=== PATIENT | male | born 1935 | race Caucasian/White ===

== ENCOUNTER 2018-04-17 14:20 | Emergency (ER) | payer MEDICARE ==
[2018-04-17 14:34] LABS: #Basophils 0.1 thou/uL (0.0-0.2); #Eosinphils 0.5 thou/uL (0.0-0.7); #Lymphocytes 3.4 thou/uL (1.20-3.40); #Neutrophils 4.9 thou/uL (1.40-6.50); %Basophils 1.4 % (0.0-1.0); %Eosinophils 4.8 % (0.0-10.0); %Lymphocytes 34.7 % (21.0-51.0); %Monocytes 10.2 % (0.0-10.0); %Neutrophils 48.9 % (42.0-75.0); Hemoglobin 14.9 g/dL (14.0-18.0); Mean Corpuscular HGB CONC 35.2 g/dL (32.0-36.0); Mean Corpuscular Hemoglobin 30.6 pg (27.0-31.0); Mean Corpuscular Volume 86.7 fL (78.0-98.0); Mean Platelet Volume 8.2 fL (7.4-10.4); Platelet Count 167 thou/uL (130-400); RBC Distribution Width 11.3 % (11.5-14.5); Red Blood Cell (RBC) Count 4.89 mill/uL (4.70-6.10); White Blood Cell (WBC) Count 9.9 thou/uL (4.8-10.8)
[2018-04-17 14:49] LABS: ALT (SGPT) 16 U/L (8-55); AST (SGOT) 16 U/L (5-34); Albumin 3.9 g/dL (3.4-4.8); Alkaline Phosphatase 58 U/L (40-150); Anion Gap 14 mmol/L (10-20); BUN (Urea Nitrogen) 20 mg/dL (8.4-25.7); Bilirubin, Total 0.6 mg/dL (0.2-1.2); CK (CPK) 66 U/L (30-200); Calc. Creatinine Clearance 0 mL/min (70-130); Calcium 9.5 mg/dL (7.8-10.44); Carbon Dioxide 24 mmol/L (23-31); Chloride 102 mmol/L (98-107); Estimated GFR-MDRD 73; Glucose 99 mg/dL (83-110); Potassium 4.3 mmol/L (3.5-5.1); Protein, Total 6.9 g/dL (5.8-8.1); Sodium 136 mmol/L (136-145)
[2018-04-17 14:50] LABS: CKMB 2.6 ng/mL (0-6.6); Troponin I Less than 0.010 ng/mL (< 0.028)
--- NOTE | 2018-04-17 16:27 | CT ---
CT ANGIO CHEST WITH CONTRAST: INDICATIONS: Dyspnea. Shortness of breath. TECHNIQUE: Multiple axial tomograms obtained through the chest following pulmonary angio protocol with multiplan ar reconstruction and 3D post processing. FINDINGS: The pulmonary arteries show adequate opacification. No evidence of pulmonary embolus identified. Review of the lung davis reveals areas of patchy alveolar infiltrate involving the right upper lobe, the right middle lobe, and the right lower lobe. The left lung appears clear of infiltrate with dwaine e chronic appearing changes. The mediastinum is unremarkable. The left lobe of the thyroid is enlarged and heterogeneous. This should be further evaluated with a thyroid ultrasound. Images through the upper abdomen are unremarkable. IMPRESSION: 1. No evidence of pulmonary embolus. 2. Patchy nodular infiltrative changes throughout all lobes of the right lung. Findings suggest an infectious process. Close followup recommended. 3. Enlarged heterogeneous left lobe of thyroid. Recommend additional workup with thyroid ultrasound . POS: [facility]
== END 2018-04-17 17:35 | disposition home or self-care (01) ==
LOC: SCSER 14:20
DX: J18.9 Pneumonia, unspecified organism (principal); I10 Essential (primary) hypertension; Z87.891 Personal history of nicotine dependence
CPT/HCPCS: 71275; 80053; 82553; 83880; 84484; 85025; 93005; 96365; 96366; J1956

== ENCOUNTER 2019-08-30 15:00 | Outpatient (CLI) | payer MEDICARE ==
--- NOTE | 2019-08-30 16:43 | MRI ---
MRI OF PELVIS (PROSTATE) WITH AND WITHOUT IV CONTRAST: 08/30/19 HISTORY: 84-year-old male with elevated PSA, biopsy one year ago. TECHNIQUE: Multiplanar and multisequence MRI of the pelvis was performed with and without IV contrast using the prostate protocol. Evaluation was also performed on an independent 3D workstation. FINDINGS: The prostate measures 5 x 3.5 x 4.5 cm with a volume of 41 mL. There is a 1 cm focal area of restricted diffusion in the anterior aspect of the right mid gland with in the peripheral zone. This lesion in the peripheral zone demonstrates focally increased enhancement on the arterial images. No lentiform area of abnormally decreased T2 signal is noted in the transitional zone. The prostate capsule appears intact. The seminal vesicles also appear intact. No pelvic lymphadenopathy is seen. Pelvic sidewall is normal. 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 No abnormal areas of signal replacement are seen on the T1 weighted sequences or the pelvis to sugges t osseous metastatic disease. IMPRESSION: PI-RADS 4: high (clinically significant cancer is likely.) POS: [facility]
== END 2019-08-30 15:01 | disposition home or self-care (01) ==
LOC: TBSIIMAG 15:00
PROVIDERS: ATTEND Urology
DX: R97.20 Elevated prostate specific antigen [PSA] (principal)
CPT/HCPCS: 72197

== ENCOUNTER 2019-11-15 09:29 | Outpatient (CLI) | payer MEDICARE ==
--- NOTE | 2019-11-15 13:36 | NM ---
WHOLE BODY BONE SCAN: HISTORY: Prostate cancer RADIOPHARMACEUTICAL: 32.1 mCi technetium-99m MDP injected intravenously. COMPARISON: None FINDINGS: There is increased uptake in the shoulders consistent with degenerative changes. No other abnormal areas of tracer localization seen in the skeleton to suggest metastatic disease. Tracer excretion through the kidneys is within normal limits. IMPRESSION: No scintigraphic evidence of osseous metastatic disease.
== END 2019-11-15 09:30 | disposition home or self-care (01) ==
LOC: NM 09:29
PROVIDERS: ATTEND Urology
DX: C61 Malignant neoplasm of prostate (principal)
CPT/HCPCS: 78306; A9503

== ENCOUNTER 2020-12-12 11:59 | Outpatient (CLI) | payer MEDICARE ==
--- NOTE | 2020-12-12 12:54 | RAD ---
2 view chest: [12/12/2020] Comparison:10/10/2020 HISTORY: Shortness of breath FINDINGS: Stable right shoulder arthroplasty and prominent left shoulder degenerative change. Stable clips at the gastroesophageal junction. Diffuse increased linear interstitial density noted with atherosclerotic calcification of the aortic arch. No focal consolidation or alveolar edema. No signif icant interval change. IMPRESSION: Chronic findings as detailed above. Diffuse interstitial prominence with no focal consoli dation or alveolar edema.
== END 2020-12-12 12:00 | disposition home or self-care (01) ==
LOC: BICRAD 11:59
PROVIDERS: ATTEND Internal Medicine Critical Care Medicine
DX: R06.00 Dyspnea, unspecified (principal); M19.012 Primary osteoarthritis, left shoulder; I70.0 Atherosclerosis of aorta; J98.4 Other disorders of lung; Z96.611 Presence of right artificial shoulder joint
CPT/HCPCS: 71046

== ENCOUNTER 2024-04-02 14:47 | Observation (INO) | payer MEDICARE ==
[~2024-04-02 14:47] MED LIST: Iopamidol-370 76% 500 ML MDV (1 ML CHARGE) ONE
[2024-04-02] MEDS ORDERED: Dexamethasone 10 MG/ML VIAL ONE (17:01)
[2024-04-02] MEDS ORDERED: Magnesium 2 GM/50 ML BAG (IN WATER) ONE (17:02)
[2024-04-02] MEDS ORDERED: Albuterol 2.5 MG (0.5 mL) NEB ONE (17:29)
[2024-04-02] MEDS ORDERED: Albuterol 2.5 MG (3 mL) NEB ONE (17:30)
[2024-04-02] MEDS ORDERED: Ipratropium/Albuterol 3 ML NEB ONE (17:30)
[2024-04-02 17:44] LABS: #Basophils Less than 0.03 10x3/uL (0.0-0.2); %Basophils 0.3 % (0.0-1.0); %Eosinophils 2.2 % (0.0-10.0); %Lymphocytes 16.9 % (21.0-51.0); %Monocytes 7.4 % (0.0-10.0); %Neutrophils 72.9 % (42.0-75.0); Hematocrit 36.3 % (42.0-52.0); Hemoglobin 12.7 g/dL (14.0-18.0); Mean Corpuscular Hemoglobin 32.1 pg (27.0-31.0); Mean Corpuscular Volume 91.7 fL (78.0-98.0); Platelet Count 132 10x3/uL (130-400); RBC Distribution Width 13.4 % (11.5-14.5); Red Blood Cell (RBC) Count 3.96 mill/uL (4.70-6.10)
[2024-04-02 17:59] LABS: ALT (SGPT) 16 U/L (8-55); AST (SGOT) 17 U/L (5-34); Albumin 3.4 g/dL (3.4-4.8); Alkaline Phosphatase 60 U/L (40-110); Anion Gap 14 mmol/L (10-20); BUN (Urea Nitrogen) 23 mg/dL (8.4-25.7); Bilirubin, Total 0.4 mg/dL (0.2-1.2); Calc. Creatinine Clearance 0 mL/min (70-130); Calcium 8.9 mg/dL (7.8-10.44); Carbon Dioxide 17 mmol/L (23-31); Chloride 109 mmol/L (98-107); Estimated GFR 75; Globulin 3.4 g/dL (2.4-3.5); Glucose 104 mg/dL (83-110); Potassium 4.5 mmol/L (3.5-5.1); Protein, Total 6.8 g/dL (5.8-8.1); Sodium 135 mmol/L (136-145)
[2024-04-02 18:01] LABS: Troponin I 0.029 ng/mL (< 0.028)
[2024-04-02] MEDS ORDERED: Azithromycin 500 MG VIAL ONE ×2 (19:20→19:32)
[2024-04-02] MEDS ORDERED: cefTRIAXone (ROCEPHIN) 2 GM VIAL ONE (19:20)
[2024-04-02] MEDS ORDERED: Aspirin Chewable 81 MG TAB ONE (19:20)
[2024-04-02] MEDS ORDERED: Sodium Chloride 0.9% 100 ML ONE (19:20)
[2024-04-02 20:17] LABS: Influenza A by NAA Not Detected (NotDetected); Influenza B by NAA Not Detected (NotDetected); SARS-CoV-2 NAA Rapid Test Not Detected (NotDetected)
[2024-04-02 22:00] VITALS: BMI 25.0
[2024-04-02] MEDS ORDERED: Ondansetron PF 4 MG/2 ML Vial IVP PRN ×2 (22:00→22:54)
[2024-04-02] MEDS ORDERED: Ondansetron ODT 4 MG TAB SL PRN (22:00)
[2024-04-02] MEDS ORDERED: Ondansetron ODT 4 MG TAB PO PRN (22:54)
[2024-04-02] MEDS ORDERED: Acetaminophen 325 MG TAB PO PRN (22:54)
[2024-04-02] MEDS ORDERED: Ipratropium/Albuterol 3 ML NEB NEB PRN (22:56)
[2024-04-03 00:17] LABS: Troponin I 0.031 ng/mL (< 0.028)
[2024-04-03 06:32] LABS: #Basophils Less than 0.03 10x3/uL (0.0-0.2); #Eosinphils Less than 0.03 10x3/uL (0.0-0.7); %Monocytes 4.6 % (0.0-10.0); %Neutrophils 79.8 % (42.0-75.0); Hematocrit 35.9 % (42.0-52.0); Hemoglobin 12.4 g/dL (14.0-18.0); Mean Corpuscular HGB CONC 34.5 g/dL (32.0-36.0); Mean Corpuscular Hemoglobin 32.7 pg (27.0-31.0); Mean Corpuscular Volume 94.7 fL (78.0-98.0); Mean Platelet Volume 10.3 fL (7.4-10.4); Platelet Count 140 10x3/uL (130-400); RBC Distribution Width 13.6 % (11.5-14.5); Red Blood Cell (RBC) Count 3.79 mill/uL (4.70-6.10)
[2024-04-03 07:01] LABS: Troponin I 0.037 ng/mL (< 0.028)
[2024-04-03 07:02] LABS: Anion Gap 16 mmol/L (10-20); BUN (Urea Nitrogen) 22 mg/dL (8.4-25.7); Calc. Creatinine Clearance 67 mL/min (70-130); Calcium 8.9 mg/dL (7.8-10.44); Carbon Dioxide 17 mmol/L (23-31); Chloride 109 mmol/L (98-107); Estimated GFR 80; Glucose 168 mg/dL (83-110); Potassium 4.8 mmol/L (3.5-5.1); Sodium 137 mmol/L (136-145)
[2024-04-03 08:15] VITALS: TEMP 97.6
[2024-04-03] MEDS: Doxycycline 100 MG CAP PO SCH (09:58)
[2024-04-03] MEDS: predniSONE 20 MG TAB PO SCH (09:58)
[2024-04-03] MEDS: Amlodipine 5 MG TAB PO SCH (09:58)
[2024-04-03] MEDS: Cholecalciferol 1,000 UNITS (25 MCG) TAB PO SCH (09:59)
[2024-04-03] MEDS: Famotidine 20 MG TAB PO SCH (09:59)
[2024-04-03] MEDS: Cyanocobalamin (Vitamin B-12) 1,000 MCG TAB PO SCH (09:59)
[2024-04-03] MEDS: Aspirin 325 mg Enteric Coated Tablet PO SCH (09:59)
[2024-04-03] MEDS: CO Q-10 CAPSULE 100 MG PO SCH (10:00)
[2024-04-03] MEDS: Loratadine 10 MG TAB PO SCH (10:00)
[2024-04-03] MEDS: Losartan 25 MG TAB PO SCH (10:03)
[2024-04-03] MEDS: Famotidine/PF 20 mg/2ml Vial SLOW IVP SCH (10:04)
[2024-04-03 12:23] VITALS: BP 130/70
[2024-04-03] MEDS ORDERED: Atorvastatin Calcium 10 MG TAB PO SCH (21:00)
[2024-04-03] MEDS ORDERED: Calcium Carbonate 600 MG TAB PO SCH (21:00)
[2024-04-03] MEDS ORDERED: Pantoprazole DR 40 MG TAB PO SCH (21:00)
== END 2024-04-03 15:55 | disposition home or self-care (01) ==
LOC: ERS 14:47 → 2SW 20:13 → INTOOBSV 20:13
PROVIDERS: ADMIT Student in an Organized Health Care Education/Training Program; ATTEND Internal Medicine
DX: J96.01 Acute respiratory failure with hypoxia (principal); J20.9 Acute bronchitis, unspecified; J98.4 Other disorders of lung; I10 Essential (primary) hypertension; E78.5 Hyperlipidemia, unspecified; K21.9 Gastro-esophageal reflux disease without esophagitis; Z96.653 Presence of artificial knee joint, bilateral; Z96.611 Presence of right artificial shoulder joint; Z98.890 Other specified postprocedural states; Z87.891 Personal history of nicotine dependence
CPT/HCPCS: 0240U; 71045; 71275; 80048; 80053; 82962; 83605; 83690; 83880; 84484 ×3; 85025 ×2; 85379; 87040; 93005; G0378 ×2; J0456; J0696; J1100; J3475; J3490; Q9967; 36415; 36416; 96365; 96366; 96368; 96375; J7512; J7611; J7620